=== PATIENT | female | born 1995 | race Caucasian/White ===

== ENCOUNTER 2017-04-23 15:35 | Emergency (ER) | payer OTHER ==
[2017-04-23] MEDS: ONDANSETRON (ODT) 4 MG TAB ODT (18:04)
[2017-04-23] MEDS: morphine 10 MG INJ IM (18:05)
[2017-04-23 18:57] LABS: ADD UMIC NO; UR ASCORBIC ACID 20 mg/dL (NEGATIVE); UR BILIRUBIN (Dip) NEGATIVE (NEGATIVE); UR BLOOD (Dip) NEGATIVE (NEGATIVE); UR CLARITY SLIGHTLY CLOUDY (CLEAR); UR COLOR YELLOW (YELLOW); UR GLUCOSE (Dip) NEGATIVE (NEGATIVE); UR KETONES (Dip) TRACE mg/dL (NEGATIVE); UR LEUKOCYTE ESTERASE (Dip) NEGATIVE Leu/ul (NEGATIVE); UR MUCUS FEW /HPF (NONE SEEN); UR NITRITE (Dip) NEGATIVE (NEGATIVE); UR RBC 1 /HPF (0-5); UR SPECIFIC GRAVITY (Dip) 1.025 (1.003-1.030); UR TOTAL PROTEIN (Dip) NEGATIVE (NEGATIVE); UR UROBILINOGEN (Dip) NEGATIVE (NEGATIVE); UR WBC 1 /HPF (0-5)
== END 2017-04-23 19:43 | disposition home or self-care (01) ==
LOC: FTE 15:35
DX: R10.9 Unspecified abdominal pain (principal)
CPT/HCPCS: 81001; 81003; 96372; 99284-25

== ENCOUNTER 2017-09-23 13:27 | Emergency (ER) | payer OTHER | END 2017-09-23 13:44 | disposition home or self-care (01) | LOC: E/R 13:27 | DX: B02.9 Zoster without complications (principal) | CPT/HCPCS: 99283; Z7502 ==

== ENCOUNTER 2018-04-03 08:51 | Emergency (ER) | payer SELFPAY, OTHER ==
[2018-04-03 09:15] LABS: URINE BLOOD (Dip) POC 2+ (NEGATIVE); URINE GLUCOSE (Dip) POC Negative (NEGATIVE); URINE KETONES (Dip) POC Negative (NEGATIVE); URINE LEUKOCYTE EST (Dip) POC 1+ (NEGATIVE); URINE NITRITE (Dip) POC Negative (NEGATIVE); URINE TOTAL PROTEIN POC Negative (NEGATIVE)
[2018-04-09 00:09] LABS: URINE BLOOD (Dip) POC 2+ (NEGATIVE); URINE GLUCOSE (Dip) POC Negative (NEGATIVE); URINE KETONES (Dip) POC Negative (NEGATIVE); URINE LEUKOCYTE EST (Dip) POC 1+ (NEGATIVE); URINE NITRITE (Dip) POC Negative (NEGATIVE); URINE TOTAL PROTEIN POC Negative (NEGATIVE)
== END 2018-04-03 09:31 | disposition home or self-care (01) ==
LOC: FTE 08:51
DX: N39.0 Urinary tract infection, site not specified (principal)
CPT/HCPCS: 81003; 81025; 87086; 99283

== ENCOUNTER 2018-09-03 19:30 | Emergency (ER) | payer SELFPAY, OTHER ==
[2018-09-03] MEDS: FAMOTIDINE 20 MG INJ IV (20:29)
[2018-09-03] MEDS: SOD CHLORIDE 0.9% 500 ML IV (20:29)
[2018-09-03] MEDS: ONDANSETRON 4 MG INJ IV (20:29)
[2018-09-03] MEDS: morphine 2 MG INJ IV (20:30)
[2018-09-03 20:41] LABS: ABNORMAL IP MESSAGE 1; HEMATOCRIT 26.3 % (37.0-47.0); HEMOGLOBIN 7.3 g/dl (12.0-16.0); MEAN CORPUSCULAR HEMOGLOBIN 18.9 pg (29.0-33.0); MEAN CORPUSCULAR HGB CONC 27.8 g/dl (32.0-37.0); MEAN CORPUSCULAR VOLUME 68.1 fl (82.0-101.0); PLATELET COUNT 287 10^3/UL (140-415); RED BLOOD COUNT 3.86 10^6/ul (4.20-5.40); RED CELL DISTRIBUTION WIDTH 18.9 % (11.5-14.5)
[2018-09-03 20:41] LABS: WHITE BLOOD COUNT 13.5 10^3/ul (4.8-10.8)
[2018-09-03 20:58] LABS: ALANINE AMINOTRANSFERASE 11 IU/L (13-69); ALBUMIN 4.5 g/dl (3.3-4.9); ALBUMIN/GLOBULIN RATIO 1.25; ALKALINE PHOSPHATASE 87 IU/L (42-121); ANION GAP 12 (5-13); ASPARTATE AMINO TRANSFERASE 19 IU/L (15-46); BILIRUBIN,INDIRECT 0.5 mg/dl (0-1.1); BILIRUBIN,TOTAL 0.5 mg/dl (0.2-1.3); BLOOD UREA NITROGEN 12 mg/dl (7-20); CALCIUM 8.9 mg/dl (8.4-10.2); CARBON DIOXIDE 23 mmol/L (21-31); CHLORIDE 106 mmol/L (97-110); CREATININE 0.64 mg/dl (0.44-1.00); Estimated GFR > 60 mL/min (>60); GLUCOSE 105 mg/dl (70-220); LIPASE 51 U/L (23-300); POTASSIUM 3.6 mmol/L (3.5-5.1); SODIUM 141 mmol/L (135-144); TOTAL PROTEIN 8.1 g/dl (6.1-8.1)
[2018-09-03 21:01] LABS: POSITIVE DIFF @See below
[2018-09-03 21:02] LABS: ADD MAN DIFF? YES
[2018-09-03 21:14] LABS: ADD UMIC YES; UR ASCORBIC ACID NEGATIVE (NEGATIVE); UR BILIRUBIN (Dip) NEGATIVE (NEGATIVE); UR BLOOD (Dip) 3+ mg/dL (NEGATIVE); UR CLARITY CLEAR (CLEAR); UR COLOR STRAW (YELLOW); UR GLUCOSE (Dip) NEGATIVE (NEGATIVE); UR KETONES (Dip) NEGATIVE (NEGATIVE); UR LEUKOCYTE ESTERASE (Dip) NEGATIVE Leu/ul (NEGATIVE); UR NITRITE (Dip) NEGATIVE (NEGATIVE); UR RBC 143 /HPF (0-5); UR SPECIFIC GRAVITY (Dip) 1.014 (1.003-1.030); UR SQUAMOUS EPITHELIAL CELL FEW /HPF (FEW); UR TOTAL PROTEIN (Dip) NEGATIVE (NEGATIVE); UR UROBILINOGEN (Dip) NEGATIVE (NEGATIVE); UR WBC 3 /HPF (0-5)
[2018-09-03 21:20] LABS: ANISOCYTOSIS 2+ (0-0); BAND NEUTROPHILS #M 0.2 10^3/ul (0.0-0.6); BAND NEUTROPHILS % (M) 2 % (0-4); HYPOCHROMASIA 2+ (0-0); LYMPHOCYTES #M 0.9 10^3/ul (0.8-2.9); LYMPHOCYTES % (M) 7 % (15-51); MICROCYTOSIS 2+ (0-0); MONOCYTE #M 0.6 10^3/ul (0.3-0.9); MONOCYTES % (M) 5 % (0-11); OVALOCYTES 2+ (0-0); PLATELET ESTIMATE NORMAL; POIKILOCYTOSIS 2+ (0-0); POLYCHROMASIA 2+ (0-0); SEG NEUT #M 11.6 10^3/ul (1.6-7.5); SEGMENTED NEUTROPHILS (M) % 86 % (39-77); SMUDGE%M 4 % (0-0)
[2018-09-03] MEDS: IBUPROFEN 200 MG TAB PO (21:29)
[2018-09-03] MEDS: ACETAMINOPHEN 325 MG TAB PO (21:29)
[2018-09-03] MEDS: CEFTRIAXONE 1 GM/50 ML (PMX) 50 ML IVPB (23:07)
== END 2018-09-03 23:58 | disposition home or self-care (01) ==
LOC: FTE 23:58
DX: N39.0 Urinary tract infection, site not specified (principal); D64.9 Anemia, unspecified; D27.9 Benign neoplasm of unspecified ovary
CPT/HCPCS: 36415; 74176; 80053; 81001; 81025; 83690; 85025; 96361; 96365; 96375; 99285-25